=== PATIENT | male | born 1955 | race Caucasian/White ===

== ENCOUNTER → 2019-01-11 | Outpatient (CLI) | payer OTHER ==
[~2019-01-11] MED LIST: ADDERALL 30 MG30 MG PO; ANDROGEL2.5 G1 IM; CIALIS5 MG PO; FORFIVO XL450 MG PO; LISINOPRIL20 MG PO; OMEPRAZOLE40 MG PO; ONDANSETRON HCL4 M2 PO; PERCOCET PO; PYRIDIUM100 M1 PO; VYTORIN 10-201 EACH PO
[2019-01-11 08:42] VITALS: BP 125/67
[2019-01-11 08:48] LABS: HEMOGLOBIN 17.4 gm/dL (14.0-18.0)
[2019-01-11 09:45] VITALS: BP 128/74
--- NOTE | 2019-01-11 10:12 | NUR ---
ARRIVED AMBULATORY. MADE SELF COMFORTABLE IN RECLINER. PRE PHLEBOTOMY LABS DRAWN AND EVALUATED. PREP PROCEDURE TIME OUT WITH REUBEN MEDEIROS RN AT 0850. 1 UNIT (500ML) WHOLE BLOOD REMOVED PER GRAVITY. START TIME 0848 STOP TIME 0932. TOLERATED WELL. DISCHARGE REVIEWED. DENIES QUESTIONS OR NEEDS AT DISCHARGE.
== END ==
LOC: M.INFUS 08:21
PROVIDERS: Family Medicine
DX: D58.2 Other hemoglobinopathies (principal)

== ENCOUNTER 2019-04-21 22:16 | Emergency (ER) | payer OTHER ==
[~2019-04-21] VITALS: Ht 180.3 cm; Wt 95.3 kg
[2019-04-21] MEDS ORDERED: ZANAFLEX4 MG PO (22:54)
[2019-04-21] MEDS ORDERED: NORCO 5-325 TA1 EAC1 PO (22:54)
[2019-04-21 23:15] VITALS: BP 145/65
== END 2019-04-21 23:16 | disposition home or self-care (01) ==
LOC: M.ERS 22:16
DX: S39.012A Strain of muscle, fascia and tendon of lower back, initial encounter (principal); I10 Essential (primary) hypertension; E78.00 Pure hypercholesterolemia, unspecified; X58.XXXA Exposure to other specified factors, initial encounter; Y93.89 Activity, other specified; Y92.89 Other specified places as the place of occurrence of the external cause; Y99.8 Other external cause status

== ENCOUNTER → 2020-02-27 | Outpatient (CLI) | payer OTHER ==
[~2020-02-27] MED LIST changes: +GRALISE600 MG PO; +LIPITOR40 MG PO; +NAPROSYN500 M1 PO; +NORCO 5-325 TA1 EAC1 PO; +TRAMADOL 50 MG50 MG PO; +ZANAFLEX4 MG PO
--- NOTE | 2020-03-09 09:22 | PAINCON ---
[address] [address] PAIN MANAGEMENT CONSULTATION Name: DONAVAN ROY [id number] Admission: 02/27/20 Attend Phys: Rosalind Martell MD Discharge: Date of : 55 Report #: [id number] THIS REPORT FOR: //name// cc: Alexys Lawson MD, Anthony MD THIS REPORT FOR: //name// CC: Alexys Martell DATE OF SERVICE: 02/27/2020 CHIEF COMPLAINT: Arthritis in the upper spine and low back pain, which extends into both sides. HISTORY: The patient is a 64-year-old gentleman who has been referred to the Pain Clinic for evaluation. The patient states that for a number of years, he has had some problems with his back. He has some arthritic changes in the upper portion of his back and in the middle portion as well. He is experiencing pain that continues to involve both sides. Pain is worse when he is walking, standing and lifting objects. Pain is better, when he takes medications. He has used a heating pad. He has found CBD lotion is helpful. He rates his pain as an 8/10 at this point. It can rise to the level of 10. He has been using medications, such as gabapentin and nonsteroidal anti-inflammatory medications to help with the pain, but it continues to be problematic. He has tried physical therapy. He feels that his current medications simply knocks the edge off of the pain. He is quite immobile at times. States that his has to help him put his socks on. He had tried hydrocodone in the past. He found that this medication was helpful, but he is no longer taking at this point. He states that the rules seem to have changed in regards to using opioids. Though he had gone to physical therapy, he did not feel that that was significantly helpful. ALLERGIES: No known drug allergies. CURRENT MEDICATIONS: Lipitor 40 mg, gabapentin (Gralise 600 mg), lisinopril 20 mg, Naprosyn 500 mg 1 tablet, Cialis 5 mg p.r.n. PAST MEDICAL HISTORY: Chronic back pain, anxiety, prediabetes, degenerative disk disease of lumbar spine, BPH with obstruction, GERD, hypogonadism, hypercholesterolemia, and hypertension. PAST SURGICAL HISTORY: None. SOCIAL HISTORY: He is a review analyst. He [place] [address] PAIN MANAGEMENT CONSULTATION Name: DONAVAN ROY [facility]: [facility]#: [id number] Admission: 02/27/20 Attend Phys: Rosalind Martell MD Discharge: Date of : 55 Report #: [id number] REVIEW OF SYSTEMS: Fatigue and weakness, wears glasses, hearing loss, joint pain, joint swelling, muscle weakness, muscle pain and cramps, back pain, difficulty walking, tremors, memory loss, and depression. LABORATORY DATA: MRI of the lumbar spine dated 09/2020: 1. L2-L3 unremarkable. L3-L4, mild annular disk bulge. 2. L4-L5 mild annular disk bulge. 3. L5-S1 unremarkable. PAIN CLINIC ASSESSMENT/PQRS: 1. Height of 5 feet, 11 inches, weight 225 pounds, BMI is 31.5. 2. Vital signs: Blood pressure 155/80, heart rate 73, respiratory rate 16, room air saturation 97%, and temperature 98.1. 3. Pain intensity, 12/16. 4. Fall history: The patient has not fallen in the last 3 months. 5. Blood thinner. The patient is not on a blood thinning medication. 6. Hypertension. The patient is being treated for hypertension. 7. Opioids greater than 6 weeks. The patient is not on a opioid regimen. 8. Risk assessment, low for opioid use. 9. Recreational drug use. The patient denies. 10. Tobacco: The patient denies use of tobacco. 11. Alcohol: The patient denies alcohol. PHYSICAL EXAMINATION: GENERAL: The patient is a well-developed, well-nourished white male. Appears his stated age. He is alert and oriented x 3. His affect is appropriate. Speech is fluent. HEENT: Normocephalic, atraumatic. Extraocular eye muscles intact. Sclerae nonicteric. Mucous membranes are moist. The patient is wearing glasses. MUSCULOSKELETAL: Upper extremity muscle strength is judged to be 5-/5 for the major muscle groups in the upper extremity. Deep tendon reflexes are trace for the biceps bilaterally. Acls Specialist strength is 5-/5. The patient complains of some pain in the mid thoracic area at about T12 through T10. Also, complains of some pain in the midline area with pain that radiates from the midline out to the lateral portions of his hips at approximately the L4-L5 dermatomal distribution. Forward bending is somewhat limited. The patient is able to bend forward to about 30 degrees and complains of some discomfort. Left and right lateral rotations are somewhat limited, but the patient was able to do this. Anterior and posterior spring tests are negative. Lower extremity muscle strength is judged to be 5-/5 for the major muscle groups. The patient uses hands to go from a sitting to a standing position. IMPRESSION: 1. Broad-based disk bulge eccentric to the right at L1-L2 level causing mild mass effect on the thecal sac and the right descending nerve roots. [facility] [address] [place] [address] PAIN MANAGEMENT CONSULTATION Name: DONAVAN ROY Room: [facility]#: [id number] Admission: 02/27/20 Attend Phys: Rosalind Martell MD Discharge: Date of : 55 Report #: [id number] 2. Arthritic complaints in the upper and middle spine areas. 3. Chronic back pain. 4. Anxiety. 5. Prediabetes. 6. Degenerative disk disease of lumbar spine. 7. Benign prostatic hypertrophy with obstruction. 8. Gastroesophageal reflux disease. 9. Hypogonadism. 10. Hypercholesterolemia. 11. Hypertension. RECOMMENDATIONS: We discussed treatment options with the patient. At this juncture, we will consider a trial of hydrocodone 5 mg b.i.d. Hopefully, the patient will find that this medication is helpful in decreasing his pain and discomfort. We have discussed the risks and benefits of opioid use. I explained to the patient that certainly some people can become dependent on these medications. They can become addicted. He states that when he was using that before, he was not having any problems with addictive behavior and that this medication simply made his life more bearable. <ELECTRONICALLY SIGNED> By: Rosalind Martell MD 03/09/20 0922 0049 [id number]. MD yamileth Watters
== END ==
LOC: M.PC 12:13
DX: M51.26 Other intervertebral disc displacement, lumbar region (principal); F41.9 Anxiety disorder, unspecified; R73.03 Prediabetes; M51.36 Other intervertebral disc degeneration, lumbar region; N40.0 Benign prostatic hyperplasia without lower urinary tract symptoms; K21.9 Gastro-esophageal reflux disease without esophagitis; E78.00 Pure hypercholesterolemia, unspecified; I10 Essential (primary) hypertension; E29.1 Testicular hypofunction; F11.20 Opioid dependence, uncomplicated; Z79.899 Other long term (current) drug therapy

== ENCOUNTER → 2020-03-26 | Outpatient (CLI) | payer OTHER ==
--- NOTE | 2020-04-16 15:40 | PAINCON ---
[address] [address] PAIN MANAGEMENT CONSULTATION Name: KIRILL,DONAVAN Kwadwo Room: [facility].#: [id number] Admission: 03/26/20 Attend Phys: Rosalind Martell MD Discharge: Date of : 55 Report #: [id number] THIS REPORT FOR: //name// cc: Alexys Lawson MD, Anthony MD ~ THIS REPORT FOR: //name// CC: Alexys Martell DATE OF SERVICE: 03/26/2020 CHIEF COMPLAINT: Arthritis in the upper spine. HISTORY: The patient is a 64-year-old gentleman who has been seen in the pain clinic because of back pain. He has been experiencing pain in the mid to low back area. He finds that tramadol is helping. He is doing much better than at the last visit. He feels that the tramadol, gabapentin, and Naprosyn are beneficial. He rates his pain as 1/10. He finds that this medication is much better than hydrocodone. He found that the hydrocodone caused him to feel tired and sleepy. He is able to stay awake. He is able to stay focused. Overall, this medication is working quite well. ALLERGIES: No known drug allergies. CURRENT MEDICATIONS: Lipitor 40 mg, gabapentin (Gralise 600 mg), lisinopril 20 mg, Naprosyn 500 mg, and Cialis 5 mg p.r.n. PAIN CLINIC ASSESSMENT AND PQRS: 1. The patient's height 5 feet 11 inches, weight 225 pounds, BMI 30. 2. Vital Signs: Blood pressure 141/80, heart rate 76, respiratory rate 14, room air saturation 96%, and temperature 97.8. 3. Pain intensity 10/18. 4. Fall history: The patient has not fallen in the last 3 months. 5. Blood thinner. The patient is not on a blood thinning medication. 6. Hypertension. The patient is being treated for hypertension. 7. Opioids greater than 6 weeks. The patient is not on an opioid regimen. 8. Risk assessment tool, low for opioid use. 9. Recreational drug use. The patient denies. 10. Tobacco: The patient denies. 11. Alcohol: The patient denies. PHYSICAL EXAMINATION: GENERAL: The patient is a well-developed, well-nourished white male. Appears his stated age. He is alert and oriented x 3. His affect is appropriate. [place] [address] PAIN MANAGEMENT CONSULTATION Name: DONAVAN ROY Kwadwo Room: [facility]#: [id number] Admission: 03/26/20 Attend Phys: Rosalind Martell MD Discharge: Date of : 55 Report #: [id number] HEENT: Normocephalic, atraumatic. Extraocular eye muscles intact. Sclerae nonicteric. Mucous membranes are moist. The patient is wearing glasses. He has a mask on. HEART: Regular rate. LUNGS: Clear to auscultation. ABDOMEN: Nontender. EXTREMITIES: Upper extremity muscle strength judged to be 5-/5 for the major muscle groups in the upper extremity. The patient has pain that radiated down the midline area and into his hips in the L4-L5 dermatomal distribution, which has improved. IMPRESSION: 1. Improved back pain. 2. Arthritic complaints in the upper and middle spine, improved. 3. Chronic back pain. 4. Anxiety. 5. Prediabetes. 6. Disk disease of the lumbar spine. 7. Benign prostatic hypertrophy with obstruction. 8. Gastroesophageal reflux disease. 9. Hypogonadism. 10. Hypercholesterolemia. 11. Hypertension. RECOMMENDATIONS: The patient feels overall that the use of tramadol, gabapentin, and Naprosyn are helpful. He is able to do more. He is a lot less foggy. He feels that the current medical regimen is a good one. He would like to continue with his medication. He will follow up in the future as needed. We would like to thank you for letting us participate in his care. We hope he continues to do well. <ELECTRONICALLY SIGNED> By: Rosalind Martell MD 04/16/20 1540 0041 [id number]. Renan Martell MD /nt
== END ==
LOC: M.PC 08:00
PROVIDERS: ATTEND Anesthesiology Pain Medicine
DX: M51.86 Other intervertebral disc disorders, lumbar region (principal); M47.9 Spondylosis, unspecified; M54.9 Dorsalgia, unspecified; F41.9 Anxiety disorder, unspecified; R73.03 Prediabetes; N40.0 Benign prostatic hyperplasia without lower urinary tract symptoms; K21.9 Gastro-esophageal reflux disease without esophagitis; E29.1 Testicular hypofunction; E78.00 Pure hypercholesterolemia, unspecified; I10 Essential (primary) hypertension; Z79.899 Other long term (current) drug therapy

== ENCOUNTER → 2020-04-08 | Outpatient (CLI) | payer OTHER | LOC: M.LAB 07:30 | PROVIDERS: ATTEND Internal Medicine Gastroenterology | DX: Z01.818 Encounter for other preprocedural examination (principal); Z11.59 Encounter for screening for other viral diseases; K92.1 Melena ==

== ENCOUNTER → 2020-09-15 | Outpatient (CLI) | payer MEDICARE, OTHER | LOC: M.PC 08:39 | PROVIDERS: ATTEND Anesthesiology Pain Medicine | DX: M51.9 Unspecified thoracic, thoracolumbar and lumbosacral intervertebral disc disorder (principal); F41.9 Anxiety disorder, unspecified; I10 Essential (primary) hypertension; E78.00 Pure hypercholesterolemia, unspecified; E23.0 Hypopituitarism; K21.9 Gastro-esophageal reflux disease without esophagitis; N40.1 Benign prostatic hyperplasia with lower urinary tract symptoms; R73.03 Prediabetes; G89.29 Other chronic pain; F10.10 Alcohol abuse, uncomplicated; Z79.899 Other long term (current) drug therapy ==

== ENCOUNTER → 2020-12-08 | Outpatient (CLI) | payer MEDICARE, OTHER | LOC: M.PC 07:53 | PROVIDERS: ATTEND Anesthesiology Pain Medicine | DX: M51.36 Other intervertebral disc degeneration, lumbar region (principal); F41.9 Anxiety disorder, unspecified; R73.09 Other abnormal glucose; I10 Essential (primary) hypertension; E78.00 Pure hypercholesterolemia, unspecified; K21.9 Gastro-esophageal reflux disease without esophagitis; N40.1 Benign prostatic hyperplasia with lower urinary tract symptoms; Z88.8 Allergy status to other drugs, medicaments and biological substances; Z79.899 Other long term (current) drug therapy ==

== ENCOUNTER → 2021-03-02 | Outpatient (CLI) | payer MEDICARE, OTHER | LOC: M.PC 07:58 | PROVIDERS: ATTEND Anesthesiology Pain Medicine | DX: G89.29 Other chronic pain (principal); M51.86 Other intervertebral disc disorders, lumbar region; I10 Essential (primary) hypertension; R73.03 Prediabetes; F41.9 Anxiety disorder, unspecified; N40.0 Benign prostatic hyperplasia without lower urinary tract symptoms; K21.9 Gastro-esophageal reflux disease without esophagitis; E29.1 Testicular hypofunction; Z68.30 Body mass index [BMI] 30.0-30.9, adult; Z79.891 Long term (current) use of opiate analgesic; Z79.899 Other long term (current) drug therapy ==

== ENCOUNTER → 2021-05-25 | Outpatient (CLI) | payer MEDICARE, OTHER ==
[~2021-05-25] MED LIST changes: +DEPO-TESTO100 MG/1 M IM; +MOBIC15 MG PO
== END ==
LOC: M.PC 08:08
PROVIDERS: ATTEND Anesthesiology Pain Medicine
DX: M54.5 Low back pain (principal); M19.90 Unspecified osteoarthritis, unspecified site; G89.29 Other chronic pain; N40.0 Benign prostatic hyperplasia without lower urinary tract symptoms; K21.9 Gastro-esophageal reflux disease without esophagitis; E78.00 Pure hypercholesterolemia, unspecified; I10 Essential (primary) hypertension; E29.1 Testicular hypofunction; F41.9 Anxiety disorder, unspecified; Z79.899 Other long term (current) drug therapy; Z79.891 Long term (current) use of opiate analgesic

== ENCOUNTER → 2021-08-17 | Outpatient (CLI) | payer MEDICARE, OTHER ==
[~2021-08-17] MED LIST changes: +NORVASC5 MG PO; +OMEPRAZOLE 20 M20 M1 PO
== END ==
LOC: M.PC 07:42
PROVIDERS: ATTEND Anesthesiology Pain Medicine
DX: G89.29 Other chronic pain (principal); M51.26 Other intervertebral disc displacement, lumbar region; N40.0 Benign prostatic hyperplasia without lower urinary tract symptoms; K21.9 Gastro-esophageal reflux disease without esophagitis; E78.00 Pure hypercholesterolemia, unspecified; I10 Essential (primary) hypertension; F41.8 Other specified anxiety disorders; R73.03 Prediabetes; Z79.899 Other long term (current) drug therapy

== ENCOUNTER → 2021-10-14 | Outpatient (CLI) | payer MEDICARE, OTHER ==
[~2021-10-14] MED LIST changes: +MEDROLDOSEPACK PO
== END ==
LOC: M.PC 08:36
PROVIDERS: ATTEND Anesthesiology Pain Medicine
DX: M51.26 Other intervertebral disc displacement, lumbar region (principal); M47.816 Spondylosis without myelopathy or radiculopathy, lumbar region; G89.29 Other chronic pain; F41.9 Anxiety disorder, unspecified; R73.03 Prediabetes; N40.0 Benign prostatic hyperplasia without lower urinary tract symptoms; K21.9 Gastro-esophageal reflux disease without esophagitis; E78.00 Pure hypercholesterolemia, unspecified; I10 Essential (primary) hypertension; Z79.899 Other long term (current) drug therapy

== ENCOUNTER → 2021-10-28 | Outpatient (CLI) | payer MEDICARE, OTHER | LOC: M.PC 07:50 | PROVIDERS: ATTEND Anesthesiology Pain Medicine | DX: G89.29 Other chronic pain (principal); M54.50 Low back pain, unspecified; I10 Essential (primary) hypertension; E78.00 Pure hypercholesterolemia, unspecified; Z79.899 Other long term (current) drug therapy ==